=== PATIENT | female | born 1985 | race Two or more races ===

== ENCOUNTER 2016-06-14 00:43 | Emergency (ER) | payer MEDICAID ==
[~2016-06-14] VITALS: Ht 162.6 cm; Wt 67.9 kg
[2016-06-14 00:49] VITALS: Ht 162.6 cm; Wt 67.9 kg
[2016-06-14 03:02] LABS: ADD SCAN DIFF NO
[2016-06-14 03:07] LABS: BASOPHILS % 0.2 % (0.0-2.0); EOSINOPHILS % 0.4 % (0.0-7.0); HEMATOCRIT 36.9 % (37.0-47.0); HEMOGLOBIN 12.5 g/dl (12.0-16.0); LYMPHOCYTES # 2.5 10^3/ul (0.8-2.9); MEAN CORPUSCULAR HEMOGLOBIN 29.6 pg (29.0-33.0); MEAN CORPUSCULAR HGB CONC 33.9 g/dl (32.0-37.0); MEAN CORPUSCULAR VOLUME 87.2 fl (82.0-101.0); MEAN PLATELET VOLUME 9.1 fl (7.4-10.4); MONOCYTE # 0.8 10^3/ul (0.3-0.9); MONOCYTES % 7.4 % (0.0-11.0); NEUTROPHILS % 67.3 % (39.0-77.0); PLATELET COUNT 312 10^3/UL (140-415); RED BLOOD COUNT 4.23 10^6/ul (4.20-5.40); RED CELL DISTRIBUTION WIDTH 13.3 % (11.5-14.5); WHITE BLOOD COUNT 10.3 10^3/ul (4.8-10.8)
[2016-06-14 03:10] LABS: ADD UMIC NO; URINE BILIRUBIN (Dip) NEGATIVE (NEGATIVE); URINE BLOOD (Dip) NEGATIVE (NEGATIVE); URINE COLOR LT. YELLOW (YELLOW); URINE KETONES (Dip) NEGATIVE (NEGATIVE); URINE LEUKOCYTE ESTERASE (Dip) NEGATIVE (NEGATIVE); URINE NITRITE (Dip) NEGATIVE (NEGATIVE); URINE TOTAL PROTEIN (Dip) NEGATIVE (NEGATIVE); URINE UROBILINOGEN (Dip) 0.2 E.U./dL (0.1-1.0)
--- NOTE | 2016-06-14 03:13 | RADRPT ---
PROCEDURE: US OB. CLINICAL INDICATION: Pain. TECHNIQUE: Multiple sonographic images of the pelvis were obtained. Transabdominal imaging only w as performed. The images were reviewed on a PACS workstation. COMPARISON: None. FINDINGS: Single live intrauterine is identified. Cardiac activity is present with 148 beats per mi nute. There is a variable presentation. Measurements: BPD = 17 weeks 6 days HC = 17 weeks 4 years. AC = 17 weeks 6 days. FL = 17 weeks 4 days. Estimated gestational age of approximately 17 weeks 5 days. The estimated date of delivery is 11/17/2016. The EFW = 205 g which is at the 33rd percentile. The placenta is posterior. There is no evidence for an abruption or placenta previa. There is a grossly normal amount of amniotic fluid with aMVP = 4.2 cm. IMPRESSION: Single live intrauterine gestation of approximately 17 weeks 5 days. RPTAT: HMVK .Dario Garza MD, Date Time Electronically viewed and signed by .Dario Garza MD, MD on 06/14/2016 03:13 .K/
[2016-06-14] MEDS ORDERED: ACET325T33 PO (04:51)
--- NOTE | 2016-06-14 04:58 | ERD ---
ER Documentation Chief Complaint Date/Time DATE: 06/14/16 TIME: 04:54 Chief Complaint 18 wks , pelvic pain today, denies bleeding HPI 30-year-old female with no significant past medical history is a A2 presents to the ED complaining of lower pelvic pain that started 4 days ago. Patient describes the pain as cramp like and rates it a 8 out of 10. States that she is taking Tylenol for her pain which is slightly alleviated her symptoms. States that she is currently about 17 weeks . Reports that she feels like she has slight palpitations. States that her last menses was on April 11, 2017. Denies any vaginal bleeding, vaginal discharge, nausea, vomiting, diarrhea, constipation, chest pain, shortness of breath. 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 Godoy. ROS All systems reviewed and are negative except as per history of present illness. Medications Home Meds Active Scripts Acetaminophen* (Tylenol*) 325 Mg Tablet, 2 TAB PO Q8 Y for PAIN AND OR ELEVATED TEMP, #20 TAB Prov:YING ROGERS PA-C 06/14/16 Allergies Allergies: Coded Allergies: morphine (Verified Allergy, Unknown, 06/14/16) PMhx/Soc History of Surgery: Yes ( X2, miscarriages X2) Anesthesia Reaction: No Hx Neurological Disorder: No Hx Respiratory Disorders: No Hx Cardiac Disorders: No Hx Psychiatric Problems: No Hx Miscellaneous Medical Probl: No Hx Alcohol Use: No Hx Substance Use: No Hx Tobacco Use: No Physical Exam Vitals Vital Signs Date Time Temp Pulse Resp B/P Pulse Ox O2 Delivery O2 Flow Rate FiO2 06/14/16 05:03 94 16 100/66 100 Room Air 06/14/16 03:11 99 100 Room Air 06/14/16 00:49 98.3 129 20 116/78 99 Physical Exam Const: Upf-utd-xsuhpevgi, well-nourished. In no acute distress. Head: Atraumatic, normocephalic Eyes: Normal Conjunctiva without injection. No purulent discharge. ENT: Normal external ear, nose. Moist oropharynx without tonsillar exudates. Non -erythematous pharynx. Uvula midline. No drooling. No trismus. Neck: No cervical midline tenderness. Full range of motion. No meningismus. No cervical lymphadenopathy. No JVD. Resp: Clear to auscultation bilaterally. No wheezing, rhonchi, rales, or crackles. No accessory muscle use. No retractions. Cardio: Regular rate and rhythm. No murmurs, rubs or gallops. Abd: Soft, nontender to palpation, non distended. Normal bowel sounds. No palpable masses. No rebound tenderness. No guarding. Negative McBurney's point. Negative psoas sign. Negative obturator sign. Skin: No petechiae or rashes Back: No midline tenderness. No CVA tenderness. Ext: No cyanosis, or edema. Neur: Awake and alert. Normal gait. Normal coordination. Psych: Normal Mood and Affect Result Diagram: 06/14/16 0250 Results 24 hrs Laboratory Tests Test 06/14/16 02:50 Basophils # 0.010^3/ul Basophils % 0.2% Beta HCG, Quantitative 99590.0mIU/ml Eosinophils # 0.010^3/ul Eosinophils % 0.4% Hematocrit 36.9% Hemoglobin 12.5g/dl Lymphocytes # 2.510^3/ul Lymphocytes % 24.0% Mean Corpuscular Hemoglobin 29.6pg Mean Corpuscular Hemoglobin Concent 33.9g/dl Mean Corpuscular Volume 87.2fl Mean Platelet Volume 9.1fl Monocytes # 0.810^3/ul Monocytes % 7.4% Neutrophils # 7.010^3/ul Neutrophils % 67.3% Nucleated Red Blood Cells # 0.010^3/ul Nucleated Red Blood Cells % 0.0/100WBC Platelet Count 94722^3/UL Red Blood Count 4.2310^6/ul Red Cell Distribution Width 13.3% Urine Bilirubin NEGATIVE Urine Clarity CLEAR Urine Color LT. YELLOW Urine Glucose 0.1%% Urine Hemoglobin NEGATIVE Urine Ketones NEGATIVE Urine Leukocyte Esterase NEGATIVE Urine Nitrite NEGATIVE Urine Specific [place] 1.015 Urine Total Protein NEGATIVE Urine Urobilinogen 0.2 E.U./dL Urine pH 6.5 White Blood Count 10.310^3/ul Procedures/MDM This is a 30-year-old female with no significant past medical history is a A2 presents to the ED complaining of lower pelvic pain. Patient is afebrile and nontoxic-appearing. Patient has normal vital signs. An ultrasound, beta- hCG, CBC, type and RH, UA was ordered to evaluate patient. CBC: No evidence of severe infection or anemia Urine: No elevation in nitrites, leukocyte esterase, hematuria. No evidence of UTI Rh: B positive. No indication for Rhogam at this time. beta Hc PROCEDURE: US OB. CLINICAL INDICATION: Pain. TECHNIQUE: Multiple sonographic images of the pelvis were obtained. Transabdominal imaging only was performed. The images were reviewed on a PACS workstation. COMPARISON: None. FINDINGS: Single live intrauterine is identified. Cardiac activity is present with 148 beats per minute. There is a variable presentation. Measurements: BPD = 17 weeks 6 days HC = 17 weeks 4 years. AC = 17 weeks 6 days. FL = 17 weeks 4 days. Estimated gestational age of approximately 17 weeks 5 days. The estimated date of delivery is 11/17/2016. The EFW = 205 g which is at the 33rd percentile. The placenta is posterior. There is no evidence for an abruption or placenta previa. There is a grossly normal amount of amniotic fluid with aMVP = 4.2 cm. IMPRESSION: Single live intrauterine gestation of approximately 17 weeks 5 days. EKG reviewed and interpreted by Dr. Pederson Rate/Rhythm: [100 bpm, normal Sinus Rhythm] No ectopy, no ST elevations, normal axis. QRS, ST, T-waves: [No changes consistent w/ acute ischemia] Impression: [No evidence of ischemia or arrhythmia] Patient reports that she feels palpitations but it has now resolved. Patient has a IUP of 17 weeks 5 days. Low suspicion for acute myocardial infarction, pneumothorax, pneumonia, cardiac tamponade, pulmonary embolism, AAA, aortic dissection, Boerhaave's syndrome, cardiac dysrhythmias,meningitis, intracranial bleed, seizure, stroke, TIA or other emergent conditions. Patient's bleeding symptoms have stabilized while in the department. Low suspicion for symptomatic anemia, placenta previa, placenta abruptio, gestational hyperglycemia, sepsis, PID, appendicitis, ovarian torsion, tubo-ovarian abscess, surgical abdomen, or other emergent conditions. Patient was educated that there is a risk for threatened . Discharge medications: Tylenol Patient to follow up with SKIN DIVING TEACHER in 2 days for further evaluation and treatment of 0.1% glucose noted in her urine. Patient is to return sooner to the ED for any worsening symptoms. Patient's questions were answered. Patient understood and agreed with discharge plan. Departure Diagnosis: Primary Impression: Pelvic pain complicating Condition: Stable Patient Instructions: Pelvic Pain In : Unclear (2-3 Trimester) Referrals: [facility] YOU HAVE RECEIVED A MEDICAL SCREENING EXAM AND THE RESULTS INDICATE THAT YOU DO NOT HAVE A CONDITION THAT REQUIRES URGENT TREATMENT IN THE EMERGENCY DEPARTMENT. FURTHER EVALUATION AND TREATMENT OF YOUR CONDITION CAN WAIT UNTIL YOU ARE SEEN IN YOUR DOCTORS OFFICE WITHIN THE NEXT 1-2 DAYS. IT IS YOUR RESPONSIBILITY TO MAKE AN APPOINTMENT FOR FOLOW-UP CARE. IF YOU HAVE A PRIMARY DOCTOR --you should call your primary doctor and schedule an appointment IF YOU DO NOT HAVE A PRIMARY DOCTOR YOU CAN CALL OUR PHYSICIAN REFERRAL HOTLINE AT IF YOU CAN NOT AFFORD TO SEE A PHYSICIAN YOU CAN CHOSE FROM THE FOLLOWING [facility] [address] [facility] [address] [facility] [address] [facility] [address] [facility] [address] [facility]. [facility] [address] [facility]. [facility] YOU HAVE RECEIVED A MEDICAL SCREENING EXAM AND THE RESULTS INDICATE THAT YOU DO NOT HAVE A CONDITION THAT REQUIRES URGENT TREATMENT IN THE EMERGENCY DEPARTMENT. FURTHER EVALUATION AND TREATMENT OF YOUR CONDITION CAN WAIT UNTIL YOU ARE SEEN IN YOUR DOCTORS OFFICE WITHIN THE NEXT 1-2 DAYS. IT IS YOUR RESPONSIBILITY TO MAKE AN APPOINTMENT FOR FOLOW-UP CARE. IF YOU HAVE A PRIMARY DOCTOR --you should call your primary doctor and schedule and appointment IF YOU DO NOT HAVE A PRIMARY DOCTOR YOU CAN CALL OUR PHYSICIAN REFERRAL HOTLINE AT . IF YOU CAN NOT AFFORD TO SEE A PHYSICIAN YOU CAN CHOSE FROM THE FOLLOWING [facility] INSTITUTIONS: [facility] [address] [place] [address] [facility] [address] [place] [address] [facility] [address] [place] [address] [facility] [employer] [place] [address] [facility] [address] [place] [address] OFFICE FAX , [facility] [address] [place] [address] [address] WAGNER, [place] [address] [place] [address] [address] ODONNELL, [facility] [address] [facility] [place] [address] DR NGO, [facility] [address] [facility], [place] [address] [facility] [address] [place] [address] [phone] [address] [facility] [address] - DR BATEMAN SHANON [address], [place] [address] DR FAROOQ, [facility] [address] [facility]. [address], [place] [address] DR WILEY, [facility] [address] [place], [place] [id number] [facility] Hours: 8:00 am - 5:00 pm Additional Instructions: FOLLOW UP WITH YOUR SKIN DIVING TEACHER in 2 days. Return to this facility if you are not improving as expected. YING ROGERS PA-C Jun 14, 2016 04:58
[2016-06-14 05:03] VITALS: BP 100/66; PULSE 94; RESP 16
== END 2016-06-14 05:04 | disposition home or self-care (01) ==
LOC: FTE 00:43
DX: O26.892 Other specified pregnancy related conditions, second trimester (principal); R10.2 Pelvic and perineal pain; Z3A.17 17 weeks gestation of pregnancy
CPT/HCPCS: 36415; 76805; 81003; 84702; 85025; 86900; 86901; 93005; Z7502

== ENCOUNTER 2016-08-12 14:25 | Outpatient (CLI) | payer MEDICAID ==
[~2016-08-12] VITALS: Ht 165.1 cm; Wt 73.7 kg
[~2016-08-12 14:25] MED LIST: ACET325T33 PO
[2016-08-12 14:59] VITALS: BP 99/56; PULSE 103; Ht 165.1 cm; Wt 73.7 kg
[2016-08-12] MEDS ORDERED: PRENAT PO (15:05)
--- NOTE | 2016-08-12 15:08 | PN ---
Date/Time of Note Date/Time of Note DATE: 08/12/16 TIME: 15:04 OB Subjective Subjective Subjective Patient is 5 para 2 and 26+2 weeks of gestation She presents status post fall on her abdomen She is complaining of pelvic pain and pressure and some vaginal bleeding, no leaking fluid She reports positive movement Prior OB history significant for 2 OB Objective Objective Objective Patient complaining of pelvic pain and pressure and some vaginal bleeding HEENT: WNL Heart: Rhythm Normal Abdomen: WNL Extremities: Normal Reflexes: Normal Heart Rate: 140's Accelerations: Accelerations Present Decelerations: No Decelerations Contractions on Admission: None OB Assessment/Plan Other Assessment: 26+ weeks of gestation status post fall on her abdomen OB ultrasound There is a single intrauterine gestation in a transverse presentation to maternal right. The heart rate is present at 0.57 bpm. The placenta is posterior. There is no evidence of placenta previa or a placental abruption. The MARÍA ELENA measures 19.4 cm. Other plan: CBC, type and Rh, Kleihauer-Betke test- wnl OB ultrasound and biophysical profile- wnl Discharge home Follow up with OB in 1-2 days BALBINA KELLER MD Aug 12, 2016 15:07
[2016-08-12 16:07] LABS: ADD SCAN DIFF NO
[2016-08-12 16:15] LABS: BASOPHILS % 0.3 % (0.0-2.0); EOSINOPHILS # 0.1 10^3/ul (0.0-0.5); EOSINOPHILS % 0.8 % (0.0-7.0); HEMATOCRIT 30.8 % (37.0-47.0); HEMOGLOBIN 10.1 g/dl (12.0-16.0); LYMPHOCYTES # 2.4 10^3/ul (0.8-2.9); LYMPHOCYTES % 22.3 % (15.0-51.0); MEAN CORPUSCULAR HEMOGLOBIN 29.2 pg (29.0-33.0); MEAN CORPUSCULAR HGB CONC 32.8 g/dl (32.0-37.0); MEAN PLATELET VOLUME 9.7 fl (7.4-10.4); MONOCYTE # 0.8 10^3/ul (0.3-0.9); MONOCYTES % 7.2 % (0.0-11.0); NEUTROPHIL # 7.5 10^3/ul (1.6-7.5); NEUTROPHILS % 68.8 % (39.0-77.0); PLATELET COUNT 370 10^3/UL (140-415); RED BLOOD COUNT 3.46 10^6/ul (4.20-5.40); RED CELL DISTRIBUTION WIDTH 12.8 % (11.5-14.5); WHITE BLOOD COUNT 10.9 10^3/ul (4.8-10.8)
--- NOTE | 2016-08-12 16:37 | RADRPT ---
PROCEDURE: US OB. CLINICAL INDICATION: Fall TECHNIQUE: Transabdominal views of the pelvis are available for review. COMPARISON: Obstetrical ultrasound from 06/14/2016 FINDINGS: There is a single intrauterine gestation in a transverse presentation to maternal right. The heart rate is present at 0.57 bpm. The placenta is posterior. There is no evidence of placenta previa or a placental abruption. The MARÍA ELENA measures 19.4 cm. RPTAT: AA IMPRESSION: Normal MARÍA ELENA of 19.4 cm. Pola Brar Physician Date Time Electronically viewed and signed by Pola Brar Physician on 08/12/2016 16:37 RA/
--- NOTE | 2016-08-12 19:48 | TRIAGE ---
OB Triage Datetime Report Generated by CPN: 08/12/2016 19:48 Datetime: 08/12/2016 19:30 Stage of : OB Triage Datetime: 08/12/2016 19:05 Labor Evaluation Frequency: 0 Monitor Mode: External Resting Tone [place]: Relaxed Heart Rate FHR Baseline Rate: 145 Monitor Mode: External US Variability: Moderate 6-25 bpm Decelerations: None Category: Category I Pain Assessment Pain Scale: 0 Pain Presence: None/Denies Pain Type: N/A Pain Goal: 3 Pain Relief Measures: Comfort Measures Datetime: 08/12/2016 18:02 Stage of : OB Triage Datetime: 08/12/2016 16:57 Labor Evaluation Frequency: 0 Monitor Mode: External Resting Tone [place]: Relaxed Heart Rate FHR Baseline Rate: 145 Variability: Moderate 6-25 bpm Accelerations: 10X10 Decelerations: None Category: Category I Pain Presence: Constant Pain Location: Abdomen Pain Assessment Comments: RT SIDE ABDOMEN CONSTANT Datetime: 08/12/2016 15:02 Stage of : OB Triage Datetime: 08/12/2016 14:55 Stage of : OB Triage Assessment Type: Triage Maternal Assessment Level of Consciousness: Fully Conscious DTR's/Clonus: DTRs 2+; No Clonus Headache: Denies Blurred Vision: No Respiratory Effort: Unlabored; Regular Rhythm; Equal Expansion Breath Sounds, Left: Clear and Equal Breath Sounds, Right: Clear and Equal Nausea/Vomiting: Denies RUQ Epigastric Pain: Denies Facial Edema: None Temperature Route: Axillary Fall Risk Assessment History of Falling: (0) No Secondary Diagnosis: (0) No Ambulatory Aid: (0) Bedrest/Nurse Assist IV Therapy: (0) No Gait: (0) Normal/Bedrest/Immobile Mental Status: (0) Oriented to Own Ability Fall Score: 0 Fall Risk Score Definition: No Risk: No action required Labor Evaluation Frequency: 0 Monitor Mode: External Resting Tone [place]: Relaxed Heart Rate FHR Baseline Rate: 145 Monitor Mode: External US Variability: Moderate 6-25 bpm Decelerations: None Pain Assessment Pain Scale: 5 Pain Presence: Constant Pain Type: Pressure Pain Location: Abdomen (Annotations: rt side of abdomen and back) Pain Goal: 3 Pain Relief Measures: Comfort Measures Datetime: 08/12/2016 14:44 EGA: 26.2 Datetime: 08/12/2016 14:40 Time of Arrival: 08/12/2016 14:20 Arrived By: Ambulatory Arrived From: Home Chief Complaint: FELL ON ABDOMEN APPROX 1 HOUR AGO, BRIGHT RED BLEEDING APPROX 1 TBSP, RT SIDE AND BACK, DENIES LEAKING OF FLUID, CONSTANT PAIN Movement: Decreased Contractions: Denies/Absent Rupture of Membranes: Denies Vaginal Bleeding: Small Vaginal Discharge: Denies Recent Sexual Intercouse: Denies Abdominal Trauma: Fall Patient Complaints: Back Pain Time Provider Notified: 08/12/2016 15:02 Provider Notified: KRISHNA Initial Plan: MONITOR, CBC, RH, KB, PLACENTA, MARÍA ELENA
== END 2016-08-12 19:30 | disposition home or self-care (01) ==
LOC: OBT 14:25 → L-D 14:26 → OBT 19:30
PROVIDERS: ATTEND Obstetrics & Gynecology Gynecology
DX: O46.8X2 Other antepartum hemorrhage, second trimester (principal); O26.892 Other specified pregnancy related conditions, second trimester; R10.2 Pelvic and perineal pain; Z3A.26 26 weeks gestation of pregnancy
CPT/HCPCS: 36415; 76815; 85025; 85460; 86900; 86901; Z7500; G0463

== ENCOUNTER 2016-09-10 00:20 | Outpatient (CLI) | payer MEDICAID ==
[~2016-09-10] VITALS: Ht 162.6 cm; Wt 77.3 kg
[~2016-09-10 00:20] MED LIST changes: +PRENAT PO
[2016-09-10 00:46] VITALS: Ht 162.6 cm; Wt 77.3 kg
[2016-09-10 00:47] VITALS: BP 114/65; PULSE 18; RESP 18
[2016-09-10 01:38] LABS: URINE BLOOD (Dip) POC Negative (NEGATIVE)
--- NOTE | 2016-09-10 03:05 | RADRPT ---
PROCEDURE: OB ultrasound for biophysical profile CLINICAL INDICATION: labor. TECHNIQUE: Multiple sonographic images of the gravid uterus performed. The images were reviewed on a PACS workstation. COMPARISON: 08/12/2016 FINDINGS: A single live intrauterine is identified with heart rate of 150 bpm. Fet us is in a cephalic presentation. Placenta is located posterior. There is no evidence for placenta previa or abruption. Biophysical profile: breathing movement = 2/2 tone = 2/2 motion = 2/2 MARÍA ELENA = 2/2 MARÍA ELENA = 12.2 cm. IMPRESSION: 1. Single live intrauterine gestation. 2. Biophysical profile = 8/8. 3. MARÍA ELENA = 12.2 cm. RPTAT: HMVK .Dario Garza MD, Date Time Electronically viewed and signed by .Dario Garza MD, on 09/10/2016 03:05 .K/
--- NOTE | 2016-09-10 04:14 | TRIAGE ---
OB Triage Datetime Report Generated by CPN: 09/10/2016 04:14 Datetime: 09/10/2016 03:50 Stage of : OB Triage Datetime: 09/10/2016 03:46 Stage of : OB Triage Datetime: 09/10/2016 03:18 Stage of : OB Triage Datetime: 09/10/2016 02:30 Stage of : OB Triage Maternal Assessment Level of Consciousness: Fully Conscious Headache: Denies Nausea/Vomiting: Denies RUQ Epigastric Pain: Denies Labor Evaluation Frequency: NONE Monitor Mode: External Monitor Mode: External US Comments: EFM FREQUENT LOSS OF CONTACT DUE TO PT LYING AT LEFT LATERAL. EFM FREQUENT READJUSTED. Pain Assessment Pain Scale: 7 (Annotations: PT STATED HER PAIN GETING BETTER. ) Pain Presence: Constant Pain Type: Ache Pain Location: Abdomen Pain Goal: 2 Pain Relief Measures: Comfort Measures Datetime: 09/10/2016 01:35 Stage of : OB Triage Maternal Assessment Level of Consciousness: Fully Conscious Headache: Denies Nausea/Vomiting: Denies RUQ Epigastric Pain: Denies Labor Evaluation Frequency: NONE Monitor Mode: External Heart Rate FHR Baseline Rate: 140 Monitor Mode: External US Variability: Moderate 6-25 bpm Accelerations: 10X10 Decelerations: None Category: Category I Pain Assessment Pain Scale: 9 Pain Presence: Constant Pain Type: Ache Pain Location: Abdomen Pain Goal: 2 Pain Relief Measures: Comfort Measures Datetime: 09/10/2016 01:15 Stage of : OB Triage Comments: MONITORS OFF, U/S TECH AT BEDSIDE FOR BPP, PLACENTA POSITION Datetime: 09/10/2016 01:07 Stage of : OB Triage Datetime: 09/10/2016 01:02 Vaginal Exam Dilatation (cms): 0.0 Effacement (%): 0 Station: -3 Datetime: 09/10/2016 00:57 Stage of : OB Triage Datetime: 09/10/2016 00:30 Stage of : OB Triage Assessment Type: Triage Time of Arrival: 09/10/2016 00:30 EGA: 30.3 Arrived By: Wheelchair Arrived From: Home Chief Complaint: PT COMPLAINS OF CONSISTENT ABDOMINAL PAIN Movement: Present Contractions: Irregular Rupture of Membranes: Denies Vaginal Bleeding: None Vaginal Discharge: Denies Recent Sexual Intercouse: Yes Abdominal Trauma: Not Applicable Patient Complaints: Other Time Provider Notified: 09/10/2016 00:57 Provider Notified: DR MERCHANT Initial Plan: INITIAL ASSESSMENT, TOCO AND US MONITORS APPLIED Maternal Assessment Level of Consciousness: Fully Conscious Headache: Denies Blurred Vision: No Respiratory Effort: Unlabored; Regular Rhythm; Equal Expansion Nausea/Vomiting: Denies RUQ Epigastric Pain: Denies Lower Extremities Edema: None Degree: None Upper Extremities Edema: None Degree: None Facial Edema: None Temperature Route: Oral Monitor Mode: External (Annotations: TOCO APPLIED) Monitor Mode: External US (Annotations: US APPLIED) Pain Assessment Pain Scale: 9 Pain Presence: Constant Pain Type: Ache Pain Location: Abdomen Pain Goal: 2 Pain Relief Measures: Comfort Measures Datetime: 08/12/2016 14:55 Fall Risk Assessment Fall Score: 0 Fall Risk Score Definition: No Risk: No action required Datetime: 08/12/2016 14:44 EGA: 26.2
--- NOTE | 2016-09-10 04:43 | PN ---
Date/Time of Note Date/Time of Note DATE: 09/10/16 TIME: 04:33 OB Subjective Subjective Subjective 30 Year-old with SIUP at 30 3/7 weeks with two previous delivery presents with a chief complaint of abdominal pain. She states good movement. She denies nausea, vomiting, shortness of breath, chest pain, and abdominal pain between contractions, headache, visual changes, vaginal bleeding or LOF. OB Objective Objective Objective General: Patient appears well, alert and oriented, NAD, appropriate mood and affect ABD: gravid, soft, non-tender. Back: No CVA tenderness (B/L) LE: No clubbing, cyanosis, edema, thigh or calf tenderness bilaterally FHT: 135 bpm , moderate variability with acceleration, no deceleration-category I Contractions: None OB Assessment/Plan Other plan: 30 Year-old with SIUP at 30 3/7 weeks with two previous delivery complaint of abdominal pain. Her exam is unremarkable. She was observed in triage for more than one hour, no ucs was noted. patient stated the pain is decreasing. - FHR: No sign of metabolic acidosis- Category I - Continuous EFM, toco - Contractions: None. - Reactive NST. - Ob us performed, BPP: 10/10 - Symptoms and sign of labor, preeclampsia, kick count discussed with patient, she voiced understanding. All of her questions answered. - Patient was discharged home in stable condition with the appropriate discharge instructions provided. I would like patient to have close follow-up with her primary physician or outpatient clinic in 1-2 days or return to the ER for worsening symptoms or any other urgent concerns. DARYN MERCHANT September 10, 2016 04:43
== END 2016-09-10 05:05 | disposition home or self-care (01) ==
LOC: OBT 00:20 → L-D 00:20 → OBT 05:05
PROVIDERS: ATTEND Obstetrics & Gynecology
DX: O26.893 Other specified pregnancy related conditions, third trimester (principal); O34.219 Maternal care for unspecified type scar from previous cesarean delivery; R10.9 Unspecified abdominal pain; Z3A.30 30 weeks gestation of pregnancy
CPT/HCPCS: 76818; 81003; Z7500; G0463